=== PATIENT | female | born 1950 | race Caucasian/White ===

== ENCOUNTER 2020-05-28 07:46 | Outpatient (CLI) | payer MEDICARE, OTHER, SELFPAY ==
--- NOTE | 2020-05-28 07:49 | MM_ITS ---
WS: [id number] Bilateral screening digital mammogram, 05/28/2020 Clinical Data: SCREENING Comparison: 04/24/2019, 04/11/2018, 04/08/2017, 03/08/2016, 02/13/2015, 02/04/2014, 01/11/2013, 12/06/2011, , 11/24/2010, 10/13/2009, 09/17/2008. Findings: The breast parenchymal pattern shows heterogeneous density No spiculated masses or clustered calcific ations are seen. There are no secondary signs of carcinoma. MM/[id number] Impression: 1. Negative bilateral mammogram unchanged. 2. Recommend annual screening mammograms. BIRADS: 1-Negative FOLLOW UP: 1 Year Follow-up The CAD lap checker was used.
== END 2020-05-28 07:47 | disposition home or self-care (01) ==
LOC: RADSHAW 07:48
PROVIDERS: PCP Family Medicine; Visit Provider Family Medicine
DX: Z12.31 Encounter for screening mammogram for malignant neoplasm of breast (principal)
CPT/HCPCS: 77067

== ENCOUNTER → 2020-09-30 13:37 | Outpatient (BNVA) | payer MEDICARE, OTHER, SELFPAY | PROVIDERS: PCP Family Medicine; Visit Provider Family Medicine | DX: Z20.828 Contact with and (suspected) exposure to other viral communicable diseases (principal) | CPT/HCPCS: 87635 ==

== ENCOUNTER 2021-05-29 14:49 | Outpatient (CLI) | payer MEDICARE, OTHER, SELFPAY ==
--- NOTE | 2021-05-29 14:59 | MM_ITS ---
WS: [id number] BILATERAL SCREENING DIGITAL MAMMOGRAM WITH CAD HISTORY: SCREENING COMPARISON: 05/28/2020 and 04/24/2019 Bilateral CC and MLO views submitted. Computer aided detection analyzed. Breast composition: The breasts are heterogeneously dense, which may obscure small masses. No suspici ous masses, microcalcifications or architectural distortion. Benign calcifications in each breast. MM/[place] [id number] IMPRESSION: BI-RADS: 2-Benign FOLLOW UP: 1 Year Follow-up
== END 2021-05-29 14:50 | disposition home or self-care (01) ==
LOC: RADSHAW 14:57
PROVIDERS: PCP Family Medicine; Visit Provider Family Medicine
DX: Z12.31 Encounter for screening mammogram for malignant neoplasm of breast (principal)
CPT/HCPCS: 77067

== ENCOUNTER → 2022-05-03 17:47 | Outpatient (BNVA) | payer MEDICARE, OTHER, SELFPAY | PROVIDERS: PCP Family Medicine; Visit Provider Family Medicine | DX: M25.532 Pain in left wrist (principal); M79.632 Pain in left forearm | CPT/HCPCS: 73090 ==

== ENCOUNTER → 2022-05-05 08:52 | Outpatient (BNVA) | payer MEDICARE, OTHER, SELFPAY | PROVIDERS: PCP Family Medicine; Visit Provider Specialist | DX: S52.255A Nondisplaced comminuted fracture of shaft of ulna, left arm, initial encounter for closed fracture (principal); S63.501A Unspecified sprain of right wrist, initial encounter; M25.531 Pain in right wrist; W19.XXXA Unspecified fall, initial encounter; Y93.79 Activity, other specified sports and athletics | CPT/HCPCS: 25530; 73110; 99204 ==

== ENCOUNTER 2022-05-05 14:39 | Outpatient (CLI) | payer MEDICARE, OTHER, SELFPAY | END 2022-05-05 14:40 | disposition home or self-care (01) | LOC: SPT 14:39 | PROVIDERS: PCP Family Medicine; Visit Provider Specialist | DX: Z46.89 Encounter for fitting and adjustment of other specified devices (principal); S62.102D Fracture of unspecified carpal bone, left wrist, subsequent encounter for fracture with routine healing; X58.XXXD Exposure to other specified factors, subsequent encounter | CPT/HCPCS: 25530; 97760; L3982 ==

== ENCOUNTER → 2022-05-31 09:50 | Outpatient (BNVA) | payer MEDICARE, OTHER, SELFPAY | PROVIDERS: PCP Family Medicine; Visit Provider Specialist | DX: S63.501A Unspecified sprain of right wrist, initial encounter (principal); S52.202A Unspecified fracture of shaft of left ulna, initial encounter for closed fracture; X58.XXXA Exposure to other specified factors, initial encounter; S52.255D Nondisplaced comminuted fracture of shaft of ulna, left arm, subsequent encounter for closed fracture with routine healing; W18.30XD Fall on same level, unspecified, subsequent encounter; Y93.A3 Activity, aerobic and step exercise | CPT/HCPCS: 73110; 99024 ==

== ENCOUNTER 2022-06-04 08:35 | Outpatient (CLI) | payer MEDICARE, OTHER, SELFPAY ==
--- NOTE | 2022-06-04 08:41 | MM_ITS ---
WS: [id number] Bilateral screening 3D tomosynthesis digital mammogram, 06/04/2022 Clinical Data: SCREENING Comparison: 05/29/2021, 05/28/2020, 04/24/2019, 04/11/2018, 04/08/2017, 03/08/2016, 02/13/2015, 02/04/2014, , 12/06/2011, 12/03/2010, 11/24/2010. Findings: The breast parenchymal pattern shows ingenious density. No spiculated masses or clustered calcificati ons are seen. There are no secondary signs of carcinoma. There are lymph nodes in both axilla. MM/[place] [id number] Impression: 1. Negative bilateral mammogram unchanged. 2. Recommend annual screening mammograms. BIRADS: 1-Negative FOLLOW UP: 1 Year Follow-up The CAD credit report checker was used.
== END 2022-06-04 08:36 | disposition home or self-care (01) ==
LOC: RAD 08:38
PROVIDERS: PCP Family Medicine; Visit Provider Family Medicine
DX: Z12.31 Encounter for screening mammogram for malignant neoplasm of breast (principal)
CPT/HCPCS: 77063; 77067

== ENCOUNTER → 2022-06-28 09:44 | Outpatient (BNVA) | payer MEDICARE, OTHER, SELFPAY | PROVIDERS: PCP Family Medicine; Visit Provider Specialist | DX: S52.255D Nondisplaced comminuted fracture of shaft of ulna, left arm, subsequent encounter for closed fracture with routine healing (principal); X58.XXXD Exposure to other specified factors, subsequent encounter | CPT/HCPCS: 73110 ==

== ENCOUNTER 2022-06-28 11:55 | Outpatient (CLI) | payer MEDICARE, OTHER, SELFPAY | END 2022-06-28 11:56 | disposition home or self-care (01) | LOC: SPT 11:56 | PROVIDERS: PCP Family Medicine; Visit Provider Specialist | DX: S52.255D Nondisplaced comminuted fracture of shaft of ulna, left arm, subsequent encounter for closed fracture with routine healing (principal); X58.XXXD Exposure to other specified factors, subsequent encounter | CPT/HCPCS: 97760; 99024; L3908 ==

== ENCOUNTER 2022-06-30 08:46 | Outpatient (RCR) | payer MEDICARE, OTHER, SELFPAY | END 2022-07-16 23:59 | disposition home or self-care (01) | LOC: SOT 08:46 | PROVIDERS: PCP Family Medicine; Visit Provider Specialist | DX: S52.202D Unspecified fracture of shaft of left ulna, subsequent encounter for closed fracture with routine healing (principal); X58.XXXD Exposure to other specified factors, subsequent encounter | CPT/HCPCS: 97018; 97022; 97110; 97140; 97166 ==

== ENCOUNTER 2022-07-17 06:00 | Outpatient (RCR) | payer MEDICARE, OTHER, SELFPAY | END 2022-08-16 23:59 | disposition home or self-care (01) | LOC: SOT 06:00 | PROVIDERS: PCP Family Medicine; Visit Provider Specialist | DX: S52.602S Unspecified fracture of lower end of left ulna, sequela (principal); X58.XXXS Exposure to other specified factors, sequela | CPT/HCPCS: 97018; 97110; 97140 ==

== ENCOUNTER 2023-06-07 11:30 | Outpatient (CLI) | payer MEDICARE, OTHER, SELFPAY ==
--- NOTE | 2023-06-07 11:46 | MM_ITS ---
WS: [id number] BILATERAL 3D TOMOSYNTHESIS DIGITAL SCREENING MAMMOGRAPHY WITH CAD CLINICAL INFORMATION: SCREENING HISTORY: Screening mammogram. No current complaints. COMPARISON: 2021 TECHNIQUE: Bilateral CC and MLO views. FINDINGS: The breasts are composed of heterogeneous fibroglandular density tissue, which can limit the detectio n of small underlying mass lesions. No suspicious mass, asymmetry, calcifications, or architectural d istortion. No evidence of malignancy. Dystrophic calcifications both breasts. IMPRESSION: MM/[place] [id number] BI-RADS: 2-Benign FOLLOW UP: 1 Year Follow-up Recommend return to annual screening mammography.
== END 2023-06-07 11:31 | disposition home or self-care (01) ==
LOC: RAD 11:33 → MOBLMAM 11:45
PROVIDERS: PCP Family Medicine; Visit Provider Family Medicine
DX: Z12.31 Encounter for screening mammogram for malignant neoplasm of breast (principal)
CPT/HCPCS: 77063; 77067

== ENCOUNTER → 2024-06-20 08:49 | Outpatient (BNVA) | payer MEDICARE, OTHER, SELFPAY | PROVIDERS: PCP Family Medicine; Visit Provider Family Medicine | DX: Z00.00 Encounter for general adult medical examination without abnormal findings (principal); I10 Essential (primary) hypertension | CPT/HCPCS: 80053; 80061; 85025 ==

== ENCOUNTER → 2024-06-21 10:15 | Outpatient (BNVA) | payer MEDICARE, OTHER, SELFPAY | PROVIDERS: PCP Family Medicine; Referring Provider Family Medicine; Visit Provider Student in an Organized Health Care Education/Training Program | DX: Z12.11 Encounter for screening for malignant neoplasm of colon (principal) | CPT/HCPCS: 99024; 99204 ==

== ENCOUNTER 2024-06-27 13:59 | Outpatient (CLI) | payer MEDICARE, OTHER, SELFPAY ==
--- NOTE | 2024-06-27 14:30 | XR_ITS ---
WS: [id number] DEXA (DUAL ENERGY X-RAY ABSORPTIOMETRY) Bone mineral density was performed using a Del[employer] machine. HISTORY: screening COMPARISON: 01/16/2019 Lumbar spine BMD (L1-L4): 1.070 g/cm2 T score: -0.9 Z score: 0.8 Total hip BMD: Left: 0.808 g/cm2. T score: -1.6 Z score: 0.0 Right: 0.750 g/cm2. T score: -2.0 Z score: -0.4 10 year probability of a major osteoporotic fracture is 19%. Compared to the prior study from 01/16/2019. Lumbar spine bone mineral density has decreased by 0.3%. Bilateral hips bone mineral density has decreased by 2.4%. XR/XR DEXA axial skeleton* [id number] IMPRESSION: Osteopenia based upon the WHO classification for females. Decreased in bone mineral density within the hips since the prior study. No sig nificant change within the lumbar spine.
== END 2024-06-27 14:00 | disposition home or self-care (01) ==
LOC: RAD 14:00
PROVIDERS: PCP Family Medicine; Visit Provider Family Medicine
DX: Z00.00 Encounter for general adult medical examination without abnormal findings (principal); I10 Essential (primary) hypertension; M85.80 Other specified disorders of bone density and structure, unspecified site
CPT/HCPCS: 77080

== ENCOUNTER 2024-06-29 09:42 | Outpatient (CLI) | payer MEDICARE, OTHER, SELFPAY ==
--- NOTE | 2024-06-29 09:44 | MM_ITS ---
WS: [id number] BILATERAL SCREENING DIGITAL TOMOSYNTHESIS MAMMOGRAM WITH CAD HISTORY: SCREENING COMPARISON: 06/07/2023, 06/04/2022 and 05/29/2021 Bilateral CC and MLO views with tomosynthesis and synthetic mammography submitted. Computer aided det ection analyzed. Breast composition: The breasts are heterogeneously dense, which may obscure small masses. No suspici ous masses, microcalcifications or architectural distortion. Benign calcifications. MM/MM [facility] tomosynthesis [id number] IMPRESSION: BI-RADS: 2 - Benign FOLLOW UP: 1 Year Follow-up
== END 2024-06-29 09:43 | disposition home or self-care (01) ==
LOC: RAD 09:42
PROVIDERS: PCP Family Medicine; Visit Provider Family Medicine
DX: Z12.31 Encounter for screening mammogram for malignant neoplasm of breast (principal); R92.323 Mammographic fibroglandular density, bilateral breasts; R92.1 Mammographic calcification found on diagnostic imaging of breast
CPT/HCPCS: 77063; 77067

== ENCOUNTER 2024-07-09 08:25 | Day surgery (SDC) | payer MEDICARE, OTHER, SELFPAY ==
[2024-07-09 08:40] VITALS: BP 144/89; PULSE 79; RESP 18; TEMP 36.6; O2SAT 96; BMI 24.9
[2024-07-09] MEDS: sodium chloride 0.9% 1,000 ML 30 ML IV (08:50)
--- NOTE | 2024-07-09 09:02 | W.PM.OPSUD ---
Surgery/Procedure H&P Update DATE OF PROCEDURE: July 09, 2024 DATE H&P PERFORMED: 06/21/24 H&P UPDATE INFORMATION: I have reviewed H&P completed within last 30 days and I have examined patient prior to procedure PLANNED PROCEDURE: Operation Date: 07/09/24 09:30 Proposed Procedures p Colonoscopy - 61186, G0105, Z12.11(Not Applicable) - Luis Manuel Hanson MD
--- NOTE | 2024-07-09 09:06 | ANES.PREANE2 ---
Pre-Anesthetic Assessment Height/Weight: Height 1.63 m Weight 65.771 kg Temp Pulse Resp BP Pulse Ox O2 Del Method 97.9 F 79 18 144/89 96 Room Air 07/09/24 08:40 07/09/24 08:40 07/09/24 08:40 07/09/24 08:40 07/09/24 08:40 07/09/24 08:40 Preop Diagnosis: screening Operation Date: 07/09/24 09:30 Proposed Procedures p Colonoscopy - 19849, G0105, Z12.11(Not Applicable) - Luis Manuel Hanson MD Familial anesthetic complications: none Was Beta Radha taken within 24 hours: N/A Was Clonidine taken within 24 hours: N/A Last intake: Intake Last Liquid Date 07/08/24 Last Liquid Time 22:00 Last Solid Date 07/07/24 Last Solid Time 17:30 Social Alcohol (a couple times a week) and Tobacco (history quit in 1996) Exam alert, oriented x 3, clear to auscultation bilaterally and regular rate & rhythm Airway Submandibular: within normal limits Cervical ROM: within normal limits Mallampati: Class II Dentition: full Pulmonary None reported CV/HEM Arrythmia and Hypertension None reported Hepatic None reported GI Gastroesophageal Reflux Disease (controlled) Metabolic Hyperlipidemia Musc/skel Lower Back Pain Neuropsych None reported Anesthetic Plan ASA status: 2 Anesthesia: MAC Risk of > 500 ml blood loss (7ml/kg in children): No Medications/Allergies Home Medications Medication Instructions Recorded Confirmed Last Taken Type Fast form cast #1 ea 05/05/22 06/21/24 Unknown Rx COCK UP SPLINT #1 ea 06/28/22 06/21/24 Unknown Rx famotidine 10 mg tablet 10 mg PO DAILY 06/21/24 07/05/24 07/05/24 History cholecalciferol (vitamin D3) 125 125 mcg PO DAILY 07/05/24 07/05/24 07/05/24 History mcg (5,000 unit) tablet (Vitamin D3) folic acid 800 mcg tablet 0.8 mg PO DAILY 07/05/24 07/05/24 07/05/24 History verapamil 240 mg tablet,extended 240 mg PO BID 07/05/24 07/05/24 07/08/24 History release Allergies Allergy/AdvReac Type Severity Reaction Status Date / Time No Known Allergies Allergy Verified 07/05/24 10:16 Current Medications Generic Name Dose Route Start Last Admin Trade Name Duglasq PRN Reason Stop Dose Admin Sodium Chloride 1,000 mls @ 30 mls/hr 07/09/24 08:45 07/09/24 08:50 Sodium Chloride 0.9% IV 30 mls/hr .Q24H JOANNE Administration PFSH Anesthesia Family History (Updated 06/21/24 @ 10:25 [address]ene Muñ[address] CT) Mother Colon cancer Cancer breast Father Cancer lung Sister Cancer breast and lung Social History Smoking and tobacco/nicotine status: former use of tobacco/nicotine Data Anesthesia Cardiac Studies: No Data to Display
[2024-07-09 10:09] VITALS: BP 125/59; PULSE 60; RESP 12; TEMP 36.4; O2SAT 99
[2024-07-09 10:24] VITALS: BP 137/65; PULSE 62; RESP 18; O2SAT 96
--- NOTE | 2024-07-09 10:48 | PC.NURSE ---
1040- Pt c/o abd pain and having a hard time passing air. I got her up to the bathroom and she passed some, but still c/o abd gas pain. She says that this is a problem for her at other times also. Rectal tube inserted to see if I could get more air out, but that has not worked either.
--- NOTE | 2024-07-09 10:56 | PC.NURSE ---
1055- Notified Dr Hanson of pts abd pain and inability to pass enough air. Abd soft and bowel sounds faint.
--- NOTE | 2024-07-09 10:59 | XRR_ITS ---
PROCEDURE INFORMATION: Exam: XR Abdomen Exam date and time: 07/09/2024 11:15 AM Age: 73 years old Clinical indication: Abdominal pain; Generalized; Prior surgery; Surgery date: Post-operative (0-2 days); Surgery type: Post colonoscopy; Additional info: Post colonoscopy abd pain, inability to pass gas TECHNIQUE: Imaging protocol: Radiologic exam of the abdomen. Views: 2 Views. Upright and supine views. COMPARISON: No relevant prior studies available. FINDINGS: Gastrointestinal tract: Normal. No bowel dilation. Low stool burden. Intraperitoneal space: Surgical clip left hemipelvis. No free air. Vasculature: Several small calcifications in the pelvis are highly likely to be phleboliths. However, in the proper clinical setting a distal ureteral calculus may need to be considered. Bones/joints: Mild scoliosis. Otherwise, unremarkable. XR/XR acute abdomen series [id number] IMPRESSION: 1. Several small calcifications in the pelvis are highly likely to be phleboliths. However, in the proper clinical setting a distal ureteral calculus may need to be considered. 2. No other acute findings.
[2024-07-09 11:00] VITALS: BP 153/85; PULSE 66; RESP 18; O2SAT 100
[2024-07-09 11:27] VITALS: BP 170/83; PULSE 71; RESP 18; O2SAT 99
--- NOTE | 2024-07-09 11:35 | ANE.PACU2 ---
Inpatient post-anesthesia follow up: Airway intact: Yes Vital signs: Temperature 97.6 F Pulse Rate 71 Respiratory Rate 18 Blood Pressure 170/83 Pulse Oximetry 99 Oxygen Delivery Me thod Room Air Oxygen Flow Rate Fraction of Inspir ed Oxygen Hydration adequate: Yes Nausea and vomiting: No Pain level: 1 Mental status: Baseline
== END 2024-07-09 11:37 | disposition home or self-care (01) ==
PROVIDERS: PCP Family Medicine; Visit Provider Student in an Organized Health Care Education/Training Program
PROC: 0DJD8ZZ Inspection of Lower Intestinal Tract, Via Natural or Artificial Opening Endoscopic (ICD-10-PCS; CPT 45378; principal; 2024-07-09 09:30)
DX: Z12.11 Encounter for screening for malignant neoplasm of colon (principal); K57.30 Diverticulosis of large intestine without perforation or abscess without bleeding; Z87.891 Personal history of nicotine dependence; I10 Essential (primary) hypertension; K21.9 Gastro-esophageal reflux disease without esophagitis
CPT/HCPCS: 45380; 74022; J2704; J7030

== ENCOUNTER → 2025-06-20 10:37 | Outpatient (BNVA) | payer MEDICARE, OTHER, SELFPAY | PROVIDERS: PCP Family Medicine; Visit Provider Family Medicine | DX: Z00.00 Encounter for general adult medical examination without abnormal findings (principal); I10 Essential (primary) hypertension; R53.83 Other fatigue | CPT/HCPCS: 80053; 80061; 82607; 84443; 85025; 86140 ==

== ENCOUNTER 2025-07-01 14:09 | Outpatient (CLI) | payer MEDICARE, OTHER, SELFPAY ==
--- NOTE | 2025-07-01 14:20 | MM_ITS ---
WS: [id number] BILATERAL 3D TOMOSYNTHESIS DIGITAL SCREENING MAMMOGRAPHY WITH CAD CLINICAL INFORMATION: screening HISTORY: Screening mammogram. No current complaints. COMPARISON: 2023 TECHNIQUE: Bilateral CC and MLO views. FINDINGS: The breasts are composed of heterogeneous fibroglandular density tissue, which can limit the detection of small underlying mass lesions. No suspicious mass, asymmetry, calcifications, or architectural distortion. No evidence of malignancy. Benign calcifications bilaterally. MM/MM [facility] tomosynthesis [id number] IMPRESSION: DENSITY: The breasts are heterogeneously dense, which may obscure small masses. BI-RADS: 2 - Benign FOLLOW UP: 1 Year Follow-up Recommend return to annual screening mammography.
== END 2025-07-01 14:10 | disposition home or self-care (01) ==
LOC: RAD 14:09
PROVIDERS: PCP Family Medicine; Visit Provider Family Medicine
DX: Z12.31 Encounter for screening mammogram for malignant neoplasm of breast (principal)
CPT/HCPCS: 77063; 77067